=== PATIENT | male | born 1945 | race Caucasian/White ===

== ENCOUNTER → 2020-02-29 10:34 | Outpatient (CLI) | payer MEDICARE, SELFPAY ==
[2020-02-29 11:13] LABS: BUN Creatinine Ratio 22.3 (6-22); Blood Urea Nitrogen 46 mg/dL (9-20); Calcium 9.9 mg/dL (8.4-10.2); Carbon Dioxide 25 mmol/L (22-32); Chloride 102 mmol/L (98-107); Estimated Glomerular Filt Rate 31.6 mL/min (>60); Glucose 191 mg/dL (80-110); HEMOLYSIS < 15 (0-50); Potassium 4.1 mmol/L (3.4-5.1); Sodium 138 mmol/L (137-145)
== END ==
PROVIDERS: PCP Internal Medicine; Referring Provider Hospitalist; Visit Provider Hospitalist
DX: I50.23 Acute on chronic systolic (congestive) heart failure (principal)
CPT/HCPCS: 36415; 80048

== ENCOUNTER → 2020-10-07 13:36 | Outpatient (CLI) | payer MEDICARE, SELFPAY ==
--- NOTE | 2020-10-07 | DI.ECHO.S_ITS ---
[facility] +---------+ : : [address] : [address] [address] : : : : [id number] : : : : Phone: [phone]---------+ Echocardiogram Report + + :Name: DONOVAN SIMS V Study Date: 10/07/2020 Height: 69 in : :[facility] Weight: 152 lb : : Gender: Male BSA: 1.8 m2 : :: 1945 Age: 75 yrs BP: 169/98 mmHg: :Reason For Study: ATRIAL FIBRILLATION : :Ordering Physician: CECILIA, : :JEAN Watkins Performed By: Loida Bass : :Referring: JEAN BROOKS : + + Interpretation Summary The left ventricle is moderately dilated. The ejection fraction is estimated to be 25-30%. Left ventricular function has mildly worsened compared to the previous exam. Overall there is a severe global hypokinesis except basal inferior wall, mid inferior wall and basal inferior septum which appears to be akinetic. The right ventricle is mildly dilated. Right ventricular systolic function is mild to moderately reduced.There is a pacemaker lead in the right ventricle. Tented mitral leaflets with calcification of the mitral leaflets as well as chordae with moderate mitral regurgitation without any significant mitral stenosis without any significant change from the previous study. There is moderate tricuspid regurgitation. Compared to the prior echo exam, there has been no change in TR severity. The right ventricular systolic pressure is estimated to be at least 35 mmHg based on an estimated right atrial pressure of 3 mm Hg. Compared to the prior echo exam, there has been a decrease in the severity of pulmonary hypertension. Mild atherosclerotic plaque(s) in the aortic arch. Procedure: A two-dimensional transthoracic echocardiogram with color flow and Doppler was performed. The study quality was technically adequate. Comparison is made with the echocardiogram of 09/27/2019. The heart rate ranged between 60-65 bpm during the study. The patient has a paced rhythm. Left Ventricle: The left ventricle is moderately dilated. The estimated left ventricular end diastolic volume is 171 ml. Left ventricular wall thickness is borderline increased. There is no thrombus. The ejection fraction is estimated to be 25-30%. Left ventricular function has mildly worsened compared to the previous exam. Overall there is a severe global hypokinesis except basal inferior wall, mid inferior wall and basal inferior septum which appears to be akinetic. Diastolic function could not be accurately assessed due to paced rhythm. MV E/A: 2.6 Med Peak E' Everardo: 3.1 cm/sec E/E' med: 32.3. Right Ventricle: The right ventricle is mildly dilated. There is a pacemaker lead in the right ventricle. Right ventricular systolic function is mild to moderately reduced. There has been no significant change since the previous exam. Atria: The left atrium is severely dilated. The left atrium has remained unchanged in size since the prior echo exam. There is a catheter/pacemaker lead seen in the right atrium. The right atrium is moderately dilated. There is no Doppler evidence for an interatrial shunt. Mitral Valve: Tented mitral leaflets with calcification of the mitral leaflets as well as chordae with moderate mitral regurgitation without any significant mitral stenosis without any significant change from the previous study. There is moderate mitral regurgitation. Aortic Valve: The aortic valve is trileaflet. The aortic valve is mildly calcified. There is no aortic valve stenosis. There is trace aortic regurgitation. Tricuspid Valve: Tricuspid leaflets are thickened. There is moderate tricuspid regurgitation. Compared to the prior echo exam, there has been no change in TR severity. The right ventricular systolic pressure is estimated to be at least 35 mmHg based on an estimated right atrial pressure of 3 mm Hg. Compared to the prior echo exam, there has been a decrease in the severity of pulmonary hypertension. Pulmonic Valve: There is borderline thickening of the pulmonic valve. There is mild pulmonic regurgitation. Great Vessels: The aortic root is normal size. The ascending aorta is at the upper limits of normal in size. Mild atherosclerotic plaque(s) in the aortic arch. The IVC is of normal diameter and collapses greater than 50% with a sniff. This suggests a low right atrial pressure of 3 mm Hg. Pericardium/ Pleura There is no pericardial effusion. There is no pleural effusion. MMode/2D Measurements & Calculations LVIDd: 5.9 cm LVOT diam: 2.0 cm LVIDs: 5.0 cm Ao root diam: 3.0 cm FS: 14.6 % asc Aorta Diam: 3.4 cm EPSS: 1.7 cm Ao Arch Diam (Prox Trans): 2.6 cm IVSd: 1.1 cm LVPWd: 0.99 cm LV rondon. diameter/BSA (cm/m^2): 3.2 LV sys. diameter/BSA (cm/m^2): 2.7 LA A2 area: 33.2 cm2 RA long axis: 7.7 cm LA A4 area: 31.8 cm2 RA area: 27.8 cm2 LA length (vol): 7.1 cm RA vol: 85.7 ml LA vol: 126.2 ml RA : 46.6 ml/m2 LA vol index: 68.7 ml/m2 IVC diam: 1.8 cm RVD1 (basal): 4.3 cm TAPSE: 1.2 cm Doppler Measurements & Calculations Ao V2 max: 137.2 cm/sec LVOT Max Everardo: 49.3 cm/sec Ao V2 mean: 99.5 cm/sec LV V1 max P.97 mmHg Ao max P.5 mmHg LV V1 VTI: 9.4 cm Ao mean P.2 mmHg KRYSTIN(I,D): 1.1 cm2 Ao V2 VTI: 27.3 cm KRYSTIN(V,D): 1.2 cm2 sev ratio: 0.35 KRYSTIN indexed to BSA (cm^2/m^2): 0.62 AI P1/2t: 795.0 msec AI dec slope: 152.9 cm/sec2 MV E max everardo: 100.4 cm/sec TR max everardo: 278.0 cm/sec MV A max everardo: 38.1 cm/sec TR max P.1 mmHg MV E/A: 2.6 PA V2 max: 51.6 cm/sec Med Peak E' Everardo: 3.1 cm/sec PA V2 mean: 30.5 cm/sec E/E' med: 32.3 PA mean P.46 mmHg Lat Peak E' Everardo: 3.3 cm/sec PA pr(Accel): 15.6 mmHg E/E' lat: 30.2 E/e' average: 31.3 MV dec time: 0.20 sec SV(LVOT): 31.0 ml Reading Physician:04:28 PM
== END ==
PROVIDERS: PCP Internal Medicine; Referring Provider Physician Assistant; Visit Provider Physician Assistant
DX: I08.1 Rheumatic disorders of both mitral and tricuspid valves (principal); I48.0 Paroxysmal atrial fibrillation; I70.0 Atherosclerosis of aorta; Z95.0 Presence of cardiac pacemaker
CPT/HCPCS: 93306

== ENCOUNTER → 2024-02-07 11:28 | Outpatient (CLI) | payer MEDICARE, SELFPAY ==
--- NOTE | 2024-02-07 11:32 | DI.CT.S_ITS ---
PROCEDURE: CT LUMBAR SPINE WO CON INDICATIONS: Spinal stenosis, lumbar region TECHNIQUE: Noncontrast 0.8 mm thick sections acquired from the T12 level to the sacrum. Sagittal and coronal reformats were constructed. For radiation dose reduction, the following was used: automated exposure control. COMPARISON: [facility] [place], CR, XR LUMBAR SPINE 2 OR 3 VIEWS, 01/30/2024, 15:04. FINDINGS: Image quality: Excellent. Bones: No acute vertebral body compression fractures. No suspicious lytic or blastic bony lesions. Minimal retrolisthesis can be seen at L1-L2, L2-L3, and L3-L4. Minimal anterolisthesis is seen at L5-S1. No associated pars defects are seen. Mild levoconvex scoliotic curvature is noted. T12-L1: The disc height is relatively well preserved. Vacuum disc phenomenon is seen at this level. Mild generalized disc bulge is seen. There is mild right-sided and no left-sided neural foraminal narrowing. No central canal narrowing is seen. L1-L2: At least moderate loss of disc height is seen. Endplate irregularity and sclerosis can be seen. Vacuum disc phenomenon is seen at this level. Bridging endplate osteophytes are seen. Moderate generalized disc bulge is seen. Moderate to severe bilateral neural foraminal narrowing can be seen. Mild to moderate central canal narrowing is seen. L2-L3: At least moderate loss of disc height is seen. Vacuum disc phenomenon is seen at this level. Endplate irregularity and sclerosis can be seen. Bridging endplate osteophytes can be seen on the right, as on series 5, image 26. At least moderate disc bulge is seen, which is eccentric to the right. There is a central disc osteophyte protrusion seen. There is at least moderate bilateral neural foraminal narrowing seen. Moderate central canal narrowing is seen. L3-L4: Moderate to severe loss of disc height is seen. Endplate irregularity and sclerosis can be seen. Vacuum disc phenomenon is seen at this level. At least moderate disc bulge is seen, which is eccentric to the right. Partially bridging endplate osteophytes can be seen on the right and on the left. There is a central disc osteophyte protrusion. There is moderate right-sided and mild left-sided facet hypertrophy. Moderate to severe bilateral neural foraminal narrowing can be seen. At least moderate central canal narrowing is seen at this level. L4-L5: Mild loss of disc height is seen. Vacuum disc phenomenon is seen at this level. Moderate disc bulge is seen, which is slightly eccentric to the right side. At least moderate facet hypertrophy can be seen. Moderate to severe bilateral neural foraminal narrowing can be seen. Moderate to severe central canal narrowing is also seen at this level. L5-S1: The disc height is relatively well preserved. [id number] disc bulge is seen. Prominent facet hypertrophy is seen. There is moderate to severe left-sided and at least moderate right-sided neural foraminal narrowing. Moderate central canal narrowing is seen. Soft tissues: No retroperitoneal masses or hematomas. Visualized aorta is normal in caliber. Atherosclerotic calcification is noted. IMPRESSION: Multiple levels of significant lumbar spine degenerative change can be seen, which are overall most prominent at the L4-L5 level. Mild levoconvex scoliotic curvature is noted. Dictated by: Lencho Johnson M.D. on 02/07/2024 at 16:37 Approved by: Lencho Johnson M.D. on 02/07/2024 at 16:42
== END ==
LOC: CT 11:31
PROVIDERS: PCP Internal Medicine; Referring Provider Orthopaedic Surgery Orthopaedic Surgery of the Spine; Visit Provider Orthopaedic Surgery Orthopaedic Surgery of the Spine
DX: M48.062 Spinal stenosis, lumbar region with neurogenic claudication (principal); M47.816 Spondylosis without myelopathy or radiculopathy, lumbar region; M47.817 Spondylosis without myelopathy or radiculopathy, lumbosacral region; M48.07 Spinal stenosis, lumbosacral region; M41.9 Scoliosis, unspecified
CPT/HCPCS: 72131